=== PATIENT | male | born 1945 | race Caucasian/White ===

== ENCOUNTER 2019-04-24 14:24 | Emergency (ER) | payer OTHER ==
[2019-04-24 14:39] LABS: ABSOLUTE BASOPHILS # (AUTO) 0.1 10^3/uL (0.0-0.2); ABSOLUTE EOSINOPHILS # (AUTO) 0.1 10^3/uL (0.0-0.6); ABSOLUTE LYMPHOCYTES (AUTO) 0.9 10^3/uL (0.5-4.7); ABSOLUTE MONOCYTES (AUTO) 0.6 10^3/uL (0.1-1.4); ABSOLUTE NEUT (AUTO) 3.2 10^3/uL (1.7-8.2); BASOPHILS % (AUTO) 1.3 % (0-2); HEMOGLOBIN 13.6 g/dL (13.5-17.0); MEAN CORPUSCULAR HEMOGLOBIN 32.1 pg (27.0-33.4); MEAN CORPUSCULAR HGB CONC 34.9 g/dL (32.0-36.0); MEAN CORPUSCULAR VOLUME 92 fl (80-97); MONOCYTES % (AUTO) 11.8 % (3-13); PLATELET COUNT 180 10^3/uL (150-450); RED BLOOD COUNT 4.25 10^6/uL (4.35-5.55); RED CELL DISTRIBUTION WIDTH 16.6 % (11.5-14.0); SEGMENTED NEUTROPHILS % (AUTO) 66.9 % (42-78); TOTAL CELLS COUNTED % (AUTO) 100 %; WHITE BLOOD COUNT 4.7 10^3/uL (4.0-10.5)
[2019-04-24 15:09] LABS: ALBUMIN 4.4 g/dL (3.5-5.0); ALKALINE PHOSPHATASE 69 U/L (38-126); ANION GAP 6 (5-19); ASPARTATE AMINO TRANSFERASE 29 U/L (17-59); BILIRUBIN,DIRECT 0.1 mg/dL (0.0-0.4); BILIRUBIN,TOTAL 0.6 mg/dL (0.2-1.3); BLOOD UREA NITROGEN 24 mg/dL (7-20); CALCIUM 9.8 mg/dL (8.4-10.2); CARBON DIOXIDE 35 mmol/L (22-30); CHLORIDE 99 mmol/L (98-107); CREATINE KINASE 183 U/L (55-170); GLUCOSE 86 mg/dL (75-110); POTASSIUM 4.1 mmol/L (3.6-5.0); TOTAL PROTEIN 7.4 g/dL (6.3-8.2)
[2019-04-24 15:21] LABS: CREATINE KINASE MB 1.46 ng/mL (<4.55)
[2019-04-24 15:24] LABS: TROPONIN I < 0.012 ng/mL
--- NOTE | 2019-04-24 16:22 | ER Document Report ---
ED General - General Chief Complaint: Chest Pain Stated Complaint: CHEST PAIN Time Seen by Provider: 04/24/19 16:09 Primary Care Provider: SCOTT ELDER NP [NO LOCAL MD] - Follow up as needed Mode of Arrival: Ambulatory Information source: Patient Notes: per triage note: Patient presents to the ED with complaint of L sided CP x 3 weeks that patient reports is 3/5. Patient reports he was seen at the CT today and sent to ED. Patient reports he was recently removed from his Amlodipine d/t hypotension and reports since medication change his BP has increased. Patient reports CP began prior to medication change. Patient reports pain is unchanged at rest or with activity. Patient reports hx if afib, stroke, mouth cancer, anyerusm. Patient denies SOB or dizziness at this time, denies change in urine/bowel. Patient is AOx4 with even and unlabored respirations, speaking in clear and complete sentences, nad noted. Ambulatory with even and steady gait. EMS provided 2 sprays nitro enroute. 18G established in LAC 74-year-old male arrives by POV with chief complaint of having left and right anterior lateral rib pain for least 3 weeks. He also has had hy pertension which drops while taking his Norvasc 10 mg. For the last month he has been taking one half a tablet and this has been dropping his pressure continually and therefore he has stopped his Norvasc entirely and today he has 181/133 blood pressure. Patient reports yesterday he had 112/75 blood pressure. Patient also takes propranolol 60 mg half a tablet daily and takes Viagra 20 mg as needed. He reports he has not taken that and many months. He also is on levothyroxine and supposed to be on 0.1 mg but instead only has a lower dose of 88 mcg that he has been taken. He needs refills on his 0.1 mg. He otherwise denies any shortness of breath diaphoresis weakness headache swelling of feet or legs Patient had a blood pressure 177/138 supine and sitting blood pressure 187/136 and a standing blood pressure of 174/124 patient was given p.o. Catapres 0.2 as well as Imdur [address] Cortes saw the patient in the room at 1640 and advises he will see the patient in the office even though [facility]. TRAVEL OUTSIDE OF THE [place] IN LAST 30 DAYS: No - HPI Onset: Just prior to arrival - Related Data Home Medications: Amlodipine, Eliquis Past Medical History - General Information source: Patient - Social History Smoking Status: Unknown if Ever Smoked Cigarette use (# per day): No Chew tobacco use (# tins/day): No Smoking Education Provided: No Frequency of alcohol use: None Drug Abuse: None Lives with: Family Family History: Reviewed & Not Pertinent Patient has suicidal ideation: No Patient has homicidal ideation: No - Past Medical History Cardiac Medical History: Reports: Hx Atrial Fibrillation, Hx Hypertension Review of Systems - Review of Systems Constitutional: See HPI, Weakness EENT: No symptoms reported Cardiovascular: See HPI, Chest pain Respiratory: No symptoms reported Gastrointestinal: No symptoms reported Genitourinary: No symptoms reported Male Genitourinary: No symptoms reported Musculoskeletal: No symptoms reported Skin: No symptoms reported Hematologic/Lymphatic: No symptoms reported Neurological/Psychological: No symptoms reported Physical Exam - Vital signs Vitals: Temp Pulse Resp BP Pulse Ox 98.6 F 95 15 180/129 H 95 04/24/19 14:34 04/24/19 14:34 04/24/19 14:34 04/24/19 14:34 04/24/19 14:34 Interpretation: Hypertensive - General General appearance: Alert - HEENT Head: Normocephalic Eyes: Normal Conjunctiva: Normal Cornea: Normal Extraocular movements intact: Yes Eyelashes: Normal Pupils: PERRL Nerve palsy: No Sinus: Normal Nasal: Normal Mouth/Lips: Normal Mucous membranes: Normal Pharynx: Normal Neck: Normal - Respiratory Respiratory status: No respiratory distress Chest status: Nontender Breath sounds: Normal Chest palpation: Normal - Cardiovascular Rhythm: Regular Heart sounds: Normal auscultation Murmur: No Friction rub: No Evelia's crunch: No - Abdominal Inspection: Normal Distension: No distension Bowel sounds: Normal Tenderness: Nontender Organomegaly: No organomegaly - Back Back: Normal - Extremities General upper extremity: Normal inspection General lower extremity: Normal inspection Shoulder: Normal - Neurological Neuro grossly intact: Yes Cognition: Normal Orientation: AAOx4 Chris Coma Scale Eye Opening: Spontaneous Chris Coma Scale Verbal: Oriented Chris Coma Scale Motor: Obeys Commands Chris Coma Scale Total: 15 Speech: Normal Cranial nerves: Normal Cerebellar coordination: Normal Motor strength normal: LUE, RUE, LLE, RLE - Psychological Associated symptoms: Normal affect - Skin Skin Temperature: Warm Skin Moisture: Dry Course - Vital Signs Vital signs: Temp Pulse Resp BP Pulse Ox 98.6 F 90 19 130/98 H 97 04/24/19 14:34 04/24/19 16:34 04/24/19 19:08 04/24/19 19:08 04/24/19 19:08 - Laboratory Result Diagrams: 04/24/19 14:02 04/24/19 14:02 Laboratory results interpreted by me: 04/24/19 04/24/19 14:02 14:02 RBC 4.25 L RDW 16.6 H Carbon Dioxide 35 H BUN 24 H Creatinine 1.69 H Est GFR ( Amer) 49 L Est GFR (MDRD) Non-Af 40 L Creatine Kinase 183 H Critical Care Note - Critical Care Note Total time excluding time spent on procedures (mins): 90 Discharge - Discharge Clinical Impression: Elevated CPK, Rib pain on left side, Rib pain on right side Hypertension Qualifiers: Hypertension type: unspecified Qualified Code(s): I10 - Essential (primary) hypertension Condition: Good Disposition: HOME, SELF-CARE Additional Instructions: Follow-up with your personal doctor this week and also follow-up with Dr. Cortes rubber compounder who saw you in the room tonight. Also your muscle enzymes are slightly elevated this may be the cause of your anterior rib pain. Also you are on a statin medicine and this can cause some elevated muscle proteins as well. Talk to your personal doctor about possibility of rechecking CPK to see if is gone any higher on your next visit. Return to ER for true emergencies and take your blood pressure medicine and eat and eat apple a day Prescriptions: Isosorbide Mononitrate [Imdur 30 mg Tablet.er] 30 mg PO DAILY #10 tab.er.24h Referrals: SCOTT ELDER NP [NO LOCAL MD] - Follow up as needed
[2019-04-24] MEDS ORDERED: CLONIDINE HCL 0.2 MG TABLET PO ONE (16:29)
[2019-04-24] MEDS ORDERED: ISOSORBIDE MONONITRATE 30 MG TAB.ER.24H PO STA (16:30)
--- NOTE | 2019-04-24 17:11 | RADIOLOGY REPORT (SQ) ---
EXAM DESCRIPTION: CHEST SINGLE VIEW COMPLETED DATE/TIME: 04/24/2019 4:52 pm REASON FOR STUDY: chest pain COMPARISON: None. EXAM PARAMETERS: NUMBER OF VIEWS: One view. TECHNIQUE: Single frontal radiographic view of the chest acquired. RADIATION DOSE: NA LIMITATIONS: None. FINDINGS: LUNGS AND PLEURA: Question of left apical pneumothorax versus artifact. No acute pulmona ry consolidation. No pleural effusion. No opacities, masses or pneumothorax. No pleural effusion. MEDIASTINUM AND HILAR STRUCTURES: No masses. Contour normal. HEART AND VASCULAR STRUCTURES: Cardiomegaly. Normal vasculature. BONES: No acute findings. HARDWARE: None in the chest. OTHER: No other significant finding. IMPRESSION: 1. Question of a left apical pneumothorax versus artifact. A repeat examination with i nspiratory and expiratory images. 2. No acute pulmonary consolidation. 3. Cardiomegaly. No evidence for failure. COMMENT: 1. The results of this examination were discussed with emergency department provider on 01/2020 at 17:04 hours. TECHNICAL DOCUMENTATION: JOB ID: [id number] 2010 [employer]- All Rights Reserved Reading location - IP/workstation name: [email or web address]
--- NOTE | 2019-04-24 18:47 | RADIOLOGY REPORT (SQ) ---
EXAM DESCRIPTION: CHEST 2 VIEWS COMPLETED DATE/TIME: 04/24/2019 6:23 pm REASON FOR STUDY: request by radiology COMPARISON: Two-view chest 04/24/2019 EXAM PARAMETERS: NUMBER OF VIEWS: two views TECHNIQUE: Digital Frontal and Lateral radiographic views of the chest acquired. RADIATION DOSE: NA LIMITATIONS: none FINDINGS: LUNGS AND PLEURA: No opacities, masses or pneumothorax. No pleural effusion. MEDIASTINUM AND HILAR STRUCTURES: No masses or contour abnormalities. HEART AND VASCULAR STRUCTURES: Heart normal size. No evidence for failure. BONES: No acute findings. HARDWARE: None in the chest. OTHER: No other significant finding. IMPRESSION: NO ACUTE RADIOGRAPHIC FINDING IN THE CHEST. TECHNICAL DOCUMENTATION: JOB ID: [id number] 2010 [employer]- All Rights Reserved Reading location - IP/workstation name: [email or web address]
[2019-04-24] MEDS ORDERED: LABETALOL HCL INJ 20 MG/4 ML DISP.SYRIN IV ONE (18:54)
--- NOTE | 2019-04-24 19:03 | EKG REPORT ---
SEVERITY:- ABNORMAL ECG - ATRIAL FIBRILLATION, V-RATE 81-127 ABNRM R PROG, CONSIDER ASMI OR LEAD PLACEMENT BORDERLINE PROLONGED QT INTERVAL : Confirmed by: Franklin Lopes 24-Apr-2019 19:02:55
[2019-04-24 20:03] VITALS: BP 159/109
== END 2019-04-24 20:18 | disposition home or self-care (01) ==
LOC: ER 14:24
DX: R07.81 Pleurodynia (principal); I10 Essential (primary) hypertension; R79.89 Other specified abnormal findings of blood chemistry; R53.1 Weakness; I48.91 Unspecified atrial fibrillation; Z79.899 Other long term (current) drug therapy; Z79.01 Long term (current) use of anticoagulants
CPT/HCPCS: 36415; 71045; 71046; 80053; 82550; 82553; 84443; 84484; 85025; 93005; 93010; 99291; 99292